=== PATIENT | female | born 1975 ===

== ENCOUNTER 2018-07-02 23:16 | Emergency (ER) | payer BC ==
--- NOTE | 2018-07-03 00:15 | ED ---
HPI Chest Pain - HPI Summary HPI Summary: This patient is a 42 year old F presenting to [facility] with a chief complaint of chest discomfort (a full feeling) since 22:45, 07/02/2018 while getting ready for bed. The symptoms alleviated after about 1 minute. Before the incident, she had a normal workday and normal day. Patient reports borderline nausea. Patient denies SOB, pain in LE, and swelling in LE. Patient has PMHx of anemia and is a former smoker (quit in 2014). - History of Current Complaint Chief Complaint: EDChestPainROMI Time Seen by Provider: 07/03/18 00:07 Hx Obtained From: Patient Onset/Duration: Started Hours Ago - 22:45 Timing: Lasting Minutes - about 1 minute Initial Severity: Mild Current Severity: None Pain Intensity: 0 Pain Scale Used: 0-10 Numeric Character: Other: - "a full feeling" Associated Signs and Symptoms: Positive: Chest Pain, Nausea - "borderline nausea " - Allergy/Home Medications Allergies/Adverse Reactions: Allergies Allergy/AdvReac Type Severity Reaction Status Date / Time No Known Allergies Allergy Verified 07/02/18 23:35 Home Medications: Home Medications Sertraline* 50 mg pe PO DAILY 07/03/18 [History Confirmed 07/03/18] PMH/Surg Hx/FS Hx/Imm Hx Endocrine/Hematology History: Denies: Hx Diabetes Cardiovascular History: Reports: Other Cardiovascular Problems/Disorders - Anemia Respiratory History: Denies: Hx Asthma Infectious Disease History: No Infectious Disease History: Denies: Traveled Outside the [place] in Last 30 Days - Family History Known Family History: Positive: Cardiac Disease - Social History Occupation: Employed Full-time - [employer] Lives: With Family Hx Tobacco Use: Yes Smoking Status (MU): Former Smoker Review of Systems Positive: Chest Pain - chest discomfort (a full feeling) Negative: Shortness Of Breath Positive: Nausea - "borderline nausea" Negative: Other - pain or swelling in LE All Other Systems Reviewed And Are Negative: Yes Physical Exam - Summary Physical Exam Summary: Appearance: Well-appearing, Well-nourished, lying in bed comfortably Skin: Warm, dry, no obvious rash Eyes: sclera anicteric, no conjunctival pallor ENT: mucous membranes moist, pharynx appears normal Neck: Supple, nontender Respiratory: Clear to auscultation, no signs of respiratory distress Cardiovascular: Normal S1, S2. No murmurs. Normal distal pulses in tibial and radial bilaterally. Abdomen: Soft, nontender, normal active bowel sounds present Musculoskeletal: Normal, Strength/ROM Intact Neurological: A&Ox3, awake and alert, mentation is normal, speech is fluent and appropriate Psychiatric: affect is normal, does not appear anxious or depressed Triage Information Reviewed: Yes Vital Signs On Initial Exam: Initial Vitals Temp Pulse Resp BP Pulse Ox 98.6 F 64 18 164/96 100 07/02/18 23:35 07/02/18 23:35 07/02/18 23:35 07/02/18 23:35 07/02/18 23:35 Vital Signs Reviewed: Yes Diagnostics - Vital Signs Vital Signs Temp Pulse Resp BP Pulse Ox 07/02/18 23:35 98.6 F 64 18 164/96 100 - Laboratory Result Diagrams: 07/03/18 00:29 07/03/18 00:29 Lab Statement: Any lab studies that have been ordered have been reviewed, and results considered in the medical decision making process. - EKG 23:41 Cardiac Rate: Bradycardia - 54 BPM Summary of EKG Findings: no STEMI Chest Pain Course/Dx - Course Course Of Treatment: This patient is a 42 year old F presenting to [facility] with a chief complaint of chest discomfort (a full feeling) since 22:45, 07/02/2018 while getting ready for bed. The symptoms alleviated after about 1 minute. Before the incident, she had a normal workday and normal day. Patient reports borderline nausea. Patient denies SOB, pain in LE, and swelling in LE. Patient has PMHx of anemia and is a former smoker (quit in 2014). The workup was unremarkable. Clinically, she is felt to have pain that is atypical for anginal pain. She is low risk for MACE. I instructed the patient to contact her PCP for followup this week and told her that she may need a stress test depending on that evaluation. - Diagnoses Provider Diagnoses: Atypical chest pain Discharge - Sign-Out/Discharge Documenting (check all that apply): Patient Departure - D/C - Discharge Plan Condition: Good Disposition: HOME Patient Education Materials: Chest Pain (ED) Referrals: Millie Craig DO [Primary Care Provider] - Additional Instructions: Contact your PCP for followup this week. You may need a stress test depending on that evaluation. - Billing Disposition and Condition Condition: GOOD Disposition: Home - Attestation Statements Document Initiated by Sohaibe: Yes Documenting Scribe: Maxi Thomason Provider For Whom Roger is Documenting (Include Credential): Joe Avalos MD Scribe Attestation: Maxi Sanderson, scribed for Joe Avalos MD on 07/03/18 at 0415. Scribe Documentation Reviewed: Yes Provider Attestation: The documentation as recorded by the Maxi harper accurately reflects the service I personally performed and the decisions made by meJoe MD Status of Scribe Document: Viewed
[2018-07-03 00:40] LABS: ABS Basophils 0 10^3/ul (0-0.2); ABS Eosinophils 0.1 10^3/ul (0-0.6); ABS Lymphocytes 2.1 10^3/ul (1.0-4.8); ABS Monocytes 0.4 10^3/ul (0-0.8); ABS Neutrophils 3.5 10^3/ul (1.5-7.7); ABS Nucleated RBC 0 10^3/ul; Eosinophil % 1.6 %; Hematocrit 40 % (35-47); Hemoglobin 13.3 g/dl (12.0-16.0); Lymphocyte % 33.7 %; Mean Corpuscular HGB Conc 33 g/dl (31-36); Mean Corpuscular Hemoglobin 30 pg (27-31); Mean Corpuscular Volume 90 fL (80-97); Mean Platelet Volume 8.6 fL (7.4-10.4); Nucleated Red Blood Cells % 0; Platelet Count 202 10^3/ul (150-450); Red Blood Count 4.44 10^6/ul (4.00-5.40); Red Cell Distribution Width 15 % (10.5-15); White Blood Count 6.2 10^3/ul (3.5-10.8)
[2018-07-03 00:59] LABS: Albumin 4.3 g/dL (3.2-5.2); Albumin/Globulin Ratio 1.6 (1-3); BUN/Creatinine Ratio 20.9 (8-20); Calcium 9.8 mg/dL (8.6-10.3); EGFR Non-African American 97.5 (>60); Globulin 2.7 g/dL (2-4); Potassium 3.7 mmol/L (3.5-5.0); Total Bilirubin 0.3 mg/dL (0.2-1.0)
[2018-07-03 03:48] VITALS: BP 117/81
== END 2018-07-03 03:49 | disposition home or self-care (01) ==
LOC: ED 23:16
DX: R07.89 Other chest pain (principal); R00.1 Bradycardia, unspecified; R11.0 Nausea; Z87.891 Personal history of nicotine dependence
CPT/HCPCS: 36415; 80053; 84484; 85025; 93005; 99283